=== PATIENT | female | born 1990 | race Caucasian/White ===

== ENCOUNTER 2016-08-05 19:43 | Emergency (ER) | payer BC ==
[2016-08-05] MEDS ORDERED: Bacitracin OINTMENT* 0.5% 0.5 oz TUBE TOPICAL ONE (20:13)
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
[2016-08-05 20:37] VITALS: BP 115/71
== END 2016-08-05 20:36 | disposition home or self-care (01) ==
LOC: ED 19:43
DX: T20.10XA Burn of first degree of head, face, and neck, unspecified site, initial encounter (principal); T22.111A Burn of first degree of right forearm, initial encounter; T20.17XA Burn of first degree of neck, initial encounter; X15.0XXA Contact with hot stove (kitchen), initial encounter; Y92.9 Unspecified place or not applicable
CPT/HCPCS: 99282; A9270-GY